=== PATIENT | male | born 2000 | race Caucasian/White ===

== ENCOUNTER 2022-05-06 20:47 | Emergency (ER) | payer SELFPAY ==
[~2022-05-06] VITALS: Ht 193 cm; Wt 81.6 kg
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
--- NOTE | 2022-05-07 05:08 | NUR ---
PT IS AWOKEN. PT IS AAOX4. PT AMBULATED ON STEADY GAIT TO THE BATHROOM. PT DENIES SI NOR HI. AWARE
[2022-05-07 05:11] VITALS: BP 132/84
--- NOTE | 2022-05-07 05:11 | NUR ---
Patient discharged to home in stable condition. Written and verbal after care instructions given. Patient verbalizes understanding of instruction. Pt ambulatory with a steady gait
== END 2022-05-07 05:12 | disposition home or self-care (01) ==
LOC: ER 20:58
DX: F10.129 Alcohol abuse with intoxication, unspecified (principal); Z60.2 Problems related to living alone; Y90.9 Presence of alcohol in blood, level not specified